=== PATIENT | female | born 1985 ===

== ENCOUNTER → 2024-02-05 | Outpatient (CLI) | payer OTHER | END | disposition home or self-care (01) | LOC: LAB SHORT 15:52 → LAB 15:52 | DX: R30.0 Dysuria (principal) | CPT/HCPCS: 87086; 87147 ==

== ENCOUNTER → 2024-12-05 | Outpatient (CLI) | payer OTHER | LOC: LAB 10:11 → LAB SHORT 10:11 | DX: N39.0 Urinary tract infection, site not specified (principal) | CPT/HCPCS: 87086 ==